=== PATIENT | male | born 1940 | race Caucasian/White ===

== ENCOUNTER → 2022-12-26 | Outpatient (REF) | payer MEDICARE, SELFPAY ==
[2022-12-26 08:07] LABS: Bacteria 0 SEEN /hpf (None Seen); Mucous, Urine 0 SEEN /hpf (<or=2+); Red Blood Cells-Urine 0 SEEN /hpf (0-5); Squamous Epithelial Cells - UA 0 SEEN /hpf (0-5)
[2022-12-26 08:55] LABS: Color, Urine Yellow (Yellow); Glucose, Dipstick Normal (Normal); Ketone-Dipstick Negative (Negative); Leukocyte Esterase-Dipstick 500 /ul (Negative); Nitrite-Dipstick Negative (Negative); Occult Blood-Urine 150 /ul (Negative); Protein-Dipstick 100 mg/dl (Negative); Urine Bilirubin Dipstick Negative (Negative); Urine Clarity Turbid (Clear); Urine Urobilinogen Normal (Normal)
[2022-12-26 09:08] LABS: White Blood Cells >100 SEEN /hpf (0-5)
== END ==
PROVIDERS: Visit Provider Family Medicine
DX: N39.0 Urinary tract infection, site not specified (principal)
CPT/HCPCS: 81001; 87077; 87086; 87088; 87186

== ENCOUNTER 2022-12-30 06:29 | Emergency (ER) | payer MEDICARE, OTHER, SELFPAY ==
[2022-12-30 06:32] VITALS: BP 134/76; PULSE 95; RESP 20; TEMP 36.4; O2SAT 95; BMI 25.7
--- NOTE | 2022-12-30 07:08 | EDS_ITS ---
HPI History of Present Illness Chief Complaint: Browning C/O Narrative Narrative: Patient is 82-year-old male from the care home on hospice who was sent in secondary to inadvertently removing his Browning catheter. [facility] states that they rounded on the patient this morning and found him in bed with the catheter out and patient having bleeding from the genital region. Secondary to this he was sent in to the ER for evaluation. [facility] states patient is on aspirin and Plavix. Patient cannot offer any further history secondary to his chronic dementia PFSH PFS Social History Smoking Status: Never smoker ROS ROS ED Review of Systems ROS Unobtainable: due to mental status EXAM Physical Exam Const Vital Signs: 12/30/22 06:32 Temperature 97.6 F L Temperature Source Temporal Pulse Rate 95 Respiratory Rate 20 H Blood Pressure 134/76 H Blood Pressure Mean 95 Pulse Ox 95 Oxygen Delivery Method Room Air Positive well developed and unkempt General Appearance ED: unkempt and well developed HEENT Reports dry mucous membranes Mouth ED: Yes dry mucous membranes Mouth: dry mucous membranes Neck supple Resp normal respiratory effort and clear to auscultation bilaterally Cardio regular rate and regular rhythm GI normal to inspection, nondistended, normoactive bowel sounds, non-tender, non- distended and no masses GI Narrative: No voluntary guarding or rigidity no pulsatile mass Patient has 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 He has diffuse testicular swelling which according care home is chronic in nature. There is no obvious masses palpated and there is no overlying erythema warmth or ecchymosis. No soft tissue changes to suggest Perry's gangrene. Extremity normal to inspection Extremity Narrative: No bony deformity or joint effusion Neuro Neuro Narrative: Patient is obtunded with GCS of 12 consistent with history of dementia. He is at his baseline mental status and has no new or acute deficits Sensorium / Orientation: alert Psych Psych Narrative: Patient has a flat affect Appearance: unkempt Skin no rashes or lesions noted MDM MDM MDM Narrative Medical decision making narrative: Patient presented to the ER with stable vitals and at his baseline mental status per care home. Physical exam showed chronic changes such as bilateral inguinal hernias and testicular swelling without signs of acute infection. After the dried blood was removed there was no active bleeding from the urethral meatus so a new Browning catheter was placed. Initially urine was bloody but after a few seconds a change to a clear normal yellow urine. Therefore at this time with the urine clearing without any type of irrigation and no further blood present this goes against a urethral tear and there is no need for further work- up in the ER and patient is otherwise safe for discharge Discharge Plan Triage Chief Complaint: Browning C/O ED Provider: Jono Krishnan Dx/Rx/DC Orders Clinical Impression: Dislodged Browning catheter, Dementia, Bilateral inguinal hernia Instructions: ED Browning Catheter, Care Primary Care Provider: Cecille Fierro Referrals: Cecille Fierro MD [Primary Care Provider] - Disposition Disposition: Home, Self Care
--- NOTE | 2022-12-30 08:11 | NURSING ---
[facility] ETA [id number]
== END 2022-12-30 08:52 | disposition home or self-care (01) ==
LOC: ED 07:27
PROVIDERS: Emergency Provider Emergency Medicine; PCP Family Medicine; Visit Provider Emergency Medicine
DX: T83.021A Displacement of indwelling urethral catheter, initial encounter (principal); F03.90 Unspecified dementia, unspecified severity, without behavioral disturbance, psychotic disturbance, mood disturbance, and anxiety; Z79.82 Long term (current) use of aspirin; K40.20 Bilateral inguinal hernia, without obstruction or gangrene, not specified as recurrent; Z79.01 Long term (current) use of anticoagulants; X58.XXXA Exposure to other specified factors, initial encounter; Y92.129 Unspecified place in nursing home as the place of occurrence of the external cause
CPT/HCPCS: 51702; 99285; A4216

== ENCOUNTER 2023-01-03 10:00 | Emergency (ER) | payer MEDICARE, OTHER, SELFPAY ==
[2023-01-03 10:01] VITALS: BP 146/73; PULSE 67; RESP 18; TEMP 36.3; O2SAT 96; BMI 23.6
--- NOTE | 2023-01-03 10:07 | EKG12_ITS ---
Test Reason : CP Blood Pressure : / mmHG Vent. Rate : 064 BPM Atrial Rate : 064 BPM P-R Int : 188 ms QRS Dur : 140 ms QT Int : 436 ms P-R-T Axes : 061 -74 071 degrees QTc Int : 449 ms Normal sinus rhythm Right bundle branch block Left anterior fascicular block Bifascicular block T wave abnormality, consider lateral ischemia Abnormal ECG Confirmed by ANAID CHONG, ЮЛИЯ ([id number]), online content editor RITCHIE ACE ([id number]) on 01/04/2023 9:02:27 AM Referred By: PC Confirmed By:ЮЛИЯ WORRELL MD
--- NOTE | 2023-01-03 10:07 | RAD_ITS ---
STUDY: X-RAY CHEST REASON FOR EXAM: Male, 82 years old. Confusion TECHNIQUE: Single AP portable view of the chest. COMPARISON: None. FINDINGS: EKG electrodes are seen. Elevation of the right hemidiaphragm. Mild increased markings at the lung bases suggestive of scarring and/or linear atelectasis. There is no demonstrated pleural abnormality. Normal size heart. Normal mediastinum and gayathri. Normal visualized pulmonary arteries. There is atherosclerotic calcification of the aortic arch with tortuosity. There are diffuse degenerative changes of the visualized thoracic spine. Normal visualized ribs, clavicles, and shoulders. There is no demonstrated abnormality of the visualized soft tissue structures of the upper abdomen. RAD/Chest 1 View (Portable) IMPRESSION: Elevation of the right hemidiaphragm with mild increased linear markings at the lung bases suggestive of linear atelectasis and/or scarring. Electronically Signed: Jesu Mathew MD at 11:22 EST ,
--- NOTE | 2023-01-03 10:08 | EX.ED.DYSGE1 ---
HPI History of Present Illness Chief Complaint: Mental Status Change Narrative Narrative: Patient arrives from an ECF. Apparently he was diagnosed with a urinary tract infection and he has been on IM cefepime but has been more confused and more combative at the ECF. No reported fevers. No history of trauma or head injury. Patient does have a history of dementia. Apparently the mental status changes are different than his baseline dementia. Patient can give me minimal information and no review of systems. 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 Bilateral inguinal hernia without obstruction or gangrene BPH (benign prostatic hyperplasia) Bradycardia Calculus, kidney Cardiac murmur Chronic kidney disease, stage 3 Flaccid neuropathic bladder, not elsewhere classified GERD (gastroesophageal reflux disease) Hydrocele Hydronephrosis Hyperlipemia Hypertension Hypothyroidism Inflammatory disorders of scrotum Mitral valve prolapse Nausea Qualitative platelet defect Shortness of breath Sleep apnea STEMI (ST elevation myocardial infarction) Thrombocytopenia Type 2 diabetes mellitus Urine retention Allergy/AdvReac Type Severity Reaction Status Date / Time No Known Allergies Allergy Verified 12/30/22 07:15 Social History Smoking Status: Never smoker ROS ROS ED Review of Systems ROS Unobtainable: due to mental condition EXAM Physical Exam Narrative Exam Narrative: Physical exam General: Patient appears chronically ill, he does not appear in any distress. He is relatively comfortable on the cot. Head: Normocephalic, Atraumatic Eyes: Conjunctiva not pale ENT: Dry mucous membranes Neck: Supple, Nontender, No lymphadenopathy Cardiovascular: Regular rate, Regular rhythm Respiratory: No distress, CTA bilaterally Abdomen: Soft, Nontender, Nondistended. He does have a huge right inguinal hernia that cannot be reduced however it is nontender. : Browning catheter is intact, patient is uncircumcised no signs of infection no testicular pain or scrotal erythema. Back: Nontender, Normal Inspection. Negative for: CVA tenderness Extremities: Nontender, No edema Skin: Normal color, No rash Neurological: Alert, oriented to person only normal Strength, Normal Sensation Const Vital Signs: 01/03/23 10:01 01/03/23 10:37 01/03/23 10:37 Temperature 97.3 F L Temperature Source Temporal Pulse Rate 67 Respiratory Rate 18 Blood Pressure 146/73 H Blood Pressure Mean 97 Pulse Ox 96 97 Oxygen Delivery Method Room Air Room Air Room Air [facility] Lab Data Labs: Laboratory Results - last 24 hr 01/03/23 01/03/23 01/03/23 10:30 10:30 10:30 WBC 8.3 RBC 3.49 L Hgb 10.5 L Hct 31.7 L MCV 90.8 MCH 30.1 MCHC 33.1 RDW Std Deviation 42.4 RDW Coeff of [place] 12.7 Plt Count 204 MPV 11.0 Immature Gran % (Auto) 0.600 Neut % (Auto) 73.4 H Lymph % (Auto) 13.3 L [place] % (Auto) 7.7 Eos % (Auto) 4.3 Baso % (Auto) 0.7 Absolute Neuts (auto) 6.1 Absolute Lymphs (auto) 1.11 Nucleated RBC % 0 PT 15.2 H INR 1.2 APTT 34.3 Sodium 146 H Potassium 4.5 Chloride 116 H Carbon Dioxide 21.0 Anion Gap 9 BUN 73 H Creatinine 4.07 H Estim Creat Clear Calc 15.16 Est GFR (MDRD) Af Amer 18 L Est GFR (MDRD) Non-Af 15 L BUN/Creatinine Ratio 17.9 Glucose 118 H Lactic Acid Calcium 9.6 Total Bilirubin 0.60 AST 29 ALT 26 Alkaline Phosphatase 68 Total Protein 7.0 Albumin 3.1 L Globulin 3.9 Albumin/Globulin Ratio 0.8 L Urine Color Urine Clarity Urine pH Ur Specific [place] Urine Protein Urine Glucose (UA) Urine Ketones Urine Occult Blood Urine Nitrite Urine Bilirubin Urine Urobilinogen Ur Leukocyte Esterase Urine RBC Urine WBC Ur Squamous Epith Cells Urine Bacteria Urine Mucus 01/03/23 01/03/23 10:30 10:30 WBC RBC Hgb Hct MCV MCH MCHC RDW Std Deviation RDW Coeff of [place] Plt Count MPV Immature Gran % (Auto) Neut % (Auto) Lymph % (Auto) [place] % (Auto) Eos % (Auto) Baso % (Auto) Absolute Neuts (auto) Absolute Lymphs (auto) Nucleated RBC % PT INR APTT Sodium Potassium Chloride Carbon Dioxide Anion Gap BUN Creatinine Estim Creat Clear Calc Est GFR (MDRD) Af Amer Est GFR (MDRD) Non-Af BUN/Creatinine Ratio Glucose Lactic Acid 1.0 Calcium Total Bilirubin AST ALT Alkaline Phosphatase Total Protein Albumin Globulin Albumin/Globulin Ratio Urine Color Yellow Urine Clarity Sl. Cloudy Urine pH 6.0 Ur Specific [place] 1.015 Urine Protein 100 H Urine Glucose (UA) Normal Urine Ketones 5 H Urine Occult Blood 250 H Urine Nitrite Negative Urine Bilirubin Negative Urine Urobilinogen Normal Ur Leukocyte Esterase 500 H Urine RBC 25-50 SEEN Urine WBC 25-50 SEEN Ur Squamous Epith Cells 0 SEEN Urine Bacteria 2+ Urine Mucus 0 SEEN Radiography Diagnostic Testing: Clinical Impression(s) from Imaging Studies Chest X-Ray 01/03/23 10:07 IMPRESSION: Elevation of the right hemidiaphragm with mild increased linear markings at the lung bases suggestive of linear atelectasis and/or scarring. Electronically Signed: Jesu Mathew MD at 11:22 EST , Chest x-ray interpreted by me shows chronic changes. EKG Initial EKG: Comments: Sinus rhythm with a rate of 64. Normal [place] and QTc intervals. Intraventricular conduction delay is present. Lateral T wave inversion and flattening. Otherwise unremarkable EKG Interpreted by emergency doctor Treatment and Re-Evaluation Narrative: A. Patient is found to have a urinary tract infection, he has chronic kidney disease with a really elevated creatinine and BUN there are signs of dehydration, I gave him IV fluids. He also continues to have a urinary tract infection which I treated with antibiotics IV. He is also decompensating at the F, he is getting worse and his dementia is progressing. Family would like either palliative or hospice care. I did talk to hospice nurse and patient will be evaluated. He is given IV fluids for his dehydration, I talked to the family including who is the POA and stepdaughter. B. Amount and/or complexity of the data (2 out of 3) 1. CBC, CMP, urinalysis were ordered interpreted by me I discussed the patient with and stepdaughter who were in the room 2. Independent interpretation of test Telemetry: Sinus rhythm with a rate in the 60s without ectopy 3. Discussion of management with hospice nurse C. Risk of complications and/or morbidity-see above Discharge Plan Triage Chief Complaint: Mental Status Change ED Provider: Seth Farah Dx/Rx/DC Orders Clinical Impression: Dementia, Dehydration, Renal failure, Uremia, End of life care, Acute UTI Primary Care Provider: Cecille Fierro Referrals: Cecille Fierro MD [Primary Care Provider] - Disposition Disposition: Acute Care Hospital [facility]
--- NOTE | 2023-01-03 10:12 | NURSING ---
NO OLD EKGS
[2023-01-03 10:37] VITALS: O2SAT 97
[2023-01-03 10:49] LABS: Mucous, Urine 0 SEEN /hpf (<or=2+); Squamous Epithelial Cells - UA 0 SEEN /hpf (0-5)
[2023-01-03 10:57] LABS: Absolute Lymphocyte Count 1.11 X10^3/uL (0.83-4.51); Absolute Neutrophil Count 6.1 X10^3/uL (2.0-7.7); Basophil# 0.06 X10^3/uL; Basophil% 0.7 % (0-1); Eosinophil# 0.36 X10^3/uL; Eosinophils% 4.3 % (0-5); Hematocrit 31.7 % (40-54); Hemoglobin 10.5 g/dL (13.0-16.5); Lymphocyte # 1.11 X10^3/ul (0.83-4.51); Lymphocyte % 13.3 % (19-41); Mean Corp Hgb Conc 33.1 g/dL (32-36); Mean Corpuscular Hgb 30.1 pg (27.0-32.0); Mean Corpuscular Volume 90.8 fL (80-94); Monocyte# 0.64 X10^3/uL; Monocyte% 7.7 % (0-10); NRBC Flagged by Analyzer 0 % (0-5); Neutrophil # 6.11 X10^3/uL (2.7-7.7); Neutrophil % 73.4 % (47-70); Platelet Count 204 K/mm3 (150-450); RBC Distribution Width CV 12.7 % (11.6-14.6); RBC Distribution Width SD 42.4 fl (35.1-43.9); Red Blood Count 3.49 M/mm3 (4.6-6.2); White Blood Count 8.3 K/mm3 (4.4-11.0)
[2023-01-03 11:04] LABS: Color, Urine Yellow (Yellow); Glucose, Dipstick Normal (Normal); Ketone-Dipstick 5 mg/dl (Negative); Leukocyte Esterase-Dipstick 500 /ul (Negative); Nitrite-Dipstick Negative (Negative); Occult Blood-Urine 250 /ul (Negative); Protein-Dipstick 100 mg/dl (Negative); Specific Gravity, Urine 1.015 (1.002-1.030); Urine Bilirubin Dipstick Negative (Negative); Urine Clarity Sl. Cloudy (Clear); Urine Urobilinogen Normal (Normal)
[2023-01-03 11:10] LABS: International Normalized Ratio 1.2; Prothrombin Time (Protime)PT. 15.2 SECONDS (11.7-14.9)
[2023-01-03 11:11] LABS: Partial Thromboplast Time 34.3 Seconds (24.1-36.2)
[2023-01-03 11:12] LABS: ALB/GLOB Ratio 0.8 RATIO (0.9-2.4); AST(SGOT) 29 U/L (15-37); Alanine Aminotransfer ALT/SGPT 26 U/L (16-61); Albumin, Serum 3.1 g/dL (3.2-5.0); Alkaline Phosphatase 68 U/L (45-117); Anion Gap 9 (5-15); BUN 73 mg/dL (7-18); BUN/Creat Ratio 17.9 RATIO (10-20); Calcium,Total 9.6 mg/dL (8.5-10.1); Chloride 116 mmol/L (98-107); Creatinine, Serum 4.07 mg/dL (0.70-1.30); EST Glomerular Filtration Rate 15 mL/min (>60); Est Glom Filt Rate - Afr Amer 18 mL/min (>60); Estimated Creatinine Clearance 15.16 ml/min; Globulin 3.9 g/dL (2.2-4.2); Glucose 118 mg/dL (74-106); Potassium 4.5 mmol/L (3.5-5.1); Sodium Level 146 mmol/L (136-145)
[2023-01-03 11:15] LABS: Bacteria 2+ /hpf (None Seen); Red Blood Cells-Urine 25-50 SEEN /hpf (0-5); White Blood Cells 25-50 SEEN /hpf (0-5)
[2023-01-03 12:10] VITALS: BP 160/96; PULSE 70; RESP 16; O2SAT 96
[2023-01-03] MEDS: Morphine 2 MG/ML Syringe IV (12:41)
[2023-01-03] MEDS: LORazepam 2 MG/ML Syringe 0.5 MG IV (13:29)
--- NOTE | 2023-01-03 13:39 | ED.RN ---
PT IN ROOM 10.PT EXTREMELY AGITATED. THREATENING AND GRABBING STAFF. THIS RN IN ROOM. ATTEMPTING TO TALK CALMLY WITH PT. IV REINITIATED AND PT MEDICATED WITH ATIVAN. PT MOVED TO ROOM 4. PT WRAPPED IN WARM BLANKETS. FAMILY AT BEDSIDE AND LIGHT TURNED DOWN. HOSPICE NURSE AT BEDSIDE
[2023-01-03 14:39] VITALS: PULSE 53; RESP 16; O2SAT 97
== END 2023-01-03 17:51 | disposition short-term general hospital (02) ==
PROVIDERS: Emergency Provider Emergency Medicine; PCP Family Medicine; Visit Provider Emergency Medicine
DX: N39.0 Urinary tract infection, site not specified (principal); F03.90 Unspecified dementia, unspecified severity, without behavioral disturbance, psychotic disturbance, mood disturbance, and anxiety; E11.22 Type 2 diabetes mellitus with diabetic chronic kidney disease; N18.30 Chronic kidney disease, stage 3 unspecified; E78.5 Hyperlipidemia, unspecified; I12.9 Hypertensive chronic kidney disease with stage 1 through stage 4 chronic kidney disease, or unspecified chronic kidney disease; Z51.5 Encounter for palliative care; E86.0 Dehydration
CPT/HCPCS: 71045; 80053; 81001; 83605; 85025; 85610; 85730; 87077; 87086; 87088; 87186; 93005; 96361; 96365; 96366; 96375; 99285; J7040; A4216